=== PATIENT | female | born 1950 | race Caucasian/White ===

== ENCOUNTER 2018-02-09 07:00 | Day surgery (SDC) | payer OTHER ==
[~2018-02-09] VITALS: Ht 142.2 cm; Wt 69.9 kg
[~2018-02-09 07:00] MED LIST: ATORVASTATIN CA20 MG; BENICAR20 MG; BENICAR20 MG PO; CARAFATE1 GM PO; FLONASE; PROLIA60 MG/1 ML; PROTONIX40 M1 PO; SINGULAIR10 MG; TERCONAZOLE20 GM; XOPENEX HFA15 GM IH; [UNRECOGNIZED DRUG - OTHER] PO; [UNRECOGNIZED DRUG - OTHER] PO
[2018-02-09] MEDS ORDERED: PEPCID40 MG PO (08:43)
[2018-02-09] MEDS ORDERED: FLONASE ALLERG9.9 ML IH (08:45)
== END 2018-02-10 07:00 | disposition home or self-care (01) ==
LOC: CIR.AMB 07:00 → SURH 08:00 → EDSTATUS 08:00 → SURH 09:15 → SURG 14:10 → O/R 14:10 → CIR.AMB 02-10 07:00 → SURG 02-10 08:55
DX: K80.10 Calculus of gallbladder with chronic cholecystitis without obstruction (principal)